=== PATIENT | male | born 1980 | race Caucasian/White ===

== ENCOUNTER 2023-07-04 14:12 | Emergency (ER) | payer MEDICAID ==
[~2023-07-04] VITALS: Ht 170.2 cm; Wt 78.9 kg
[2023-07-04 14:23] VITALS: BP_SYST 138; PULSE 114; RESP 22; TEMP 98.3; O2SAT 94
[2023-07-04 15:52] VITALS: BP_SYST 131; PULSE 84; RESP 19; TEMP 98.3; O2SAT 94
== END 2023-07-04 15:49 | disposition home or self-care (01) ==
LOC: SED 14:12
DX: Z00.8 Encounter for other general examination (principal)
CPT/HCPCS: 71045; 99283